=== PATIENT | female | born 2000 | race Caucasian/White ===

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

== ENCOUNTER → 2022-03-25 | Outpatient (CLI) | payer BC ==
--- NOTE | 2022-03-25 10:40 | US ---
EXAMINATION TYPE: US pelvic complete DATE OF EXAM: 03/25/2022 COMPARISON: NONE CLINICAL HISTORY: R10.9 ABD PAIN,R10.2 PELVIC AND PERINEAL PAIN. pelvic pain that makes her right leg numb, G0 TECHNIQUE: TA. Transabdominal sonographic images of the pelvis were acquired. Date of LMP: 03/22/2022 EXAM MEASUREMENTS: Uterus: 5.8 x 4.0 x 2.7 cm Endometrial Stripe: 0.5 cm Right Ovary: 2.5 x 2.7 x 1.9cm Left Ovary: 3.0 x 2.1 x 1.9cm 1. Uterus: Anteverted wnl 2. Endometrium: wnl 3. Right Ovary: small follicles seen, wnl 4. Left Ovary: small follicles seen, wnl 5. Bilateral Adnexa: wnl 6. Posterior cul-de-sac: mild free fluid toward left ovary IMPRESSION: 1. Small amount of free fluid in the left posterior cul-de-sac is nonspecific could be physiologic.
--- NOTE | 2022-03-25 10:57 | US ---
EXAMINATION TYPE: US abdomen complete DATE OF EXAM: 03/25/2022 COMPARISON: NONE CLINICAL HISTORY: R10.9 ABD PAIN,R10.2 PELVIC AND PERINEAL PAIN. pelvic pain that sometimes extends t o abd EXAM MEASUREMENTS: Liver Length: 16.7 cm Gallbladder Wall: 0.2 cm CBD: 0.4 cm Spleen: 10.9 cm Right Kidney: 10.5 x 4.4 x 4.0 cm Left Kidney: 9.3 x 4.6 x 5.0 cm Pancreas: Limited by bowel gas. Visualized portions within normal limits. Liver: wnl Gallbladder: wnl Evidence for sonographic Cevallos's sign: no CBD: wnl Spleen: wnl Right Kidney: wnl Left Kidney: wnl Upper IVC: wnl Abd Aorta: wnl IMPRESSION: No acute process.
== END | disposition home or self-care (01) ==
LOC: RADUSWWP 09:48
PROVIDERS: ATTEND Internal Medicine
DX: R10.9 Unspecified abdominal pain (principal); R10.2 Pelvic and perineal pain
CPT/HCPCS: 76700; 76856

== ENCOUNTER → 2022-04-01 | Outpatient (CLI) | payer BC ==
--- NOTE | 2022-04-01 16:32 | XR ---
EXAMINATION TYPE: XR lumbosacral spine 5 views DATE OF EXAM: 04/01/2022 Comparison: None Clinical History: 21-year-old female pain and right leg numbness, G544 Findings: There is a gentle rotary levoconvex scoliosis of the lumbar spine. 5 lumbar type vertebral bodies. No pars interarticularis defect is seen. Mild degenerative facet spurring in the lower lumbar spine. Ve rtebral body heights are preserved as are the disc interspaces. Alignment is maintained. Impression: Levoconvex scoliosis of the lumbar spine. Mild early degenerative change of the lower lumbar facet paige ints.
== END | disposition home or self-care (01) ==
LOC: RADXRMAIN 09:25
PROVIDERS: ATTEND Internal Medicine
DX: G54.4 Lumbosacral root disorders, not elsewhere classified (principal); R10.9 Unspecified abdominal pain; R10.2 Pelvic and perineal pain
CPT/HCPCS: 72110

== ENCOUNTER → 2022-06-07 | Outpatient (CLI) | payer BC ==
--- NOTE | 2022-06-07 09:08 | CT ---
EXAMINATION TYPE: CT sinus wo con CT DLP: 691.50 mGycm, Automated exposure control for dose reduction was used. DATE OF EXAM: 06/07/2022 7:15 AM COMPARISON: CT brain 01/21/2019. CLINICAL INDICATION:Female, 21 years old with history of J32.9 CHRONIC SINUSITIS; PHH, chronic sinusi tis 7 mo post COVID CONTRAST: None. TECHNIQUE: Multiple thin axial images were obtained through the paranasal sinuses without the use of IV contrast. Additional coronal and sagittal reformatted images were submitted for evaluation. FINDINGS: Frontal sinuses: Normally developed and aerated. Frontal Recess: Clear Maxillary Sinuses: Normally developed. Minimal mucosal thickening of the bilateral maxillary sinuses left greater than right. This retention cyst suggested within the left maxillary sinus measuring up t o 1.3 cm. Maxillary Infundibula([facility]): Clear, Ezio cell identified bilaterally without significant infundibula r narrowing. Ethmoid sinuses: Normally developed and aerated. Ethmoidal notch: Supraorbital pneumatization is iden tified. Sphenoid sinuses: Normally developed and aerated. There is sellar sphenoid sinus pneumatization witho ut evidence of dehiscence. No dehiscence of carotid canal. No evidence of optic nerve dehiscence wit hin the sphenoid sinus. Sphenoethmoidal recesses: Clear. Nasal septum: Mild nasal septal deviation of the right. Nasal Turbinates: Within normal limits. Mastoid air cells & middle ears: The air cells are clear. The middle ears are grossly unremarkable. Modified Soft tissues & Brain: Partially seen without gross abnormality. Globes are intact. Other: Cribriform plate demonstrates symmetric Keros classification type 2 cribriform plate. No evidence of bony dehiscence of skull base. Lamina papyracea is intact without evidence of remote orbital fracture or orbital prolapse into the e thmoid sinus. Pneumatization of the shaquille marsha. IMPRESSION: 1. Minimal bilateral maxillary sinus disease. 2. The ostiomeatal units, frontonasal and sphenoethmoidal recesses are clear. Bilateral Ezio cells.
== END | disposition home or self-care (01) ==
LOC: RADCTMAIN 06:58
PROVIDERS: ATTEND Otolaryngology
DX: J32.9 Chronic sinusitis, unspecified (principal)
CPT/HCPCS: 70486